=== PATIENT | female | born 1995 ===

== ENCOUNTER 2018-04-25 07:17 | Emergency (ER) | payer OTHER ==
[~2018-04-25] VITALS: Ht 167.6 cm; Wt 72.6 kg
[2018-04-25] MEDS ORDERED: AMOX1TAB5 PO (10:04)
[2018-04-25] MEDS ORDERED: TUSSI PRES-B L120 M1 PO (10:04)
== END 2018-04-25 10:20 | disposition home or self-care (01) ==
LOC: ER 07:17
DX: B34.9 Viral infection, unspecified (principal)

== ENCOUNTER 2018-05-30 07:05 | Emergency (ER) | payer OTHER ==
[~2018-05-30] VITALS: Ht 172.7 cm; Wt 72.6 kg
[~2018-05-30 07:05] MED LIST: AMOX1TAB5 PO; TUSSI PRES-B L120 M1 PO
[2018-05-30] MEDS ORDERED: ZITHROMAX500 MG PO (10:22)
[2018-05-30] MEDS ORDERED: KETO10TA2 PO (10:22)
== END 2018-05-30 10:56 | disposition home or self-care (01) ==
LOC: ER 07:05
DX: J35.01 Chronic tonsillitis (principal)